=== PATIENT | male | born 1955 ===

== ENCOUNTER → 2022-07-08 | Outpatient (CLI) | payer OTHER | END | disposition home or self-care (01) | LOC: TOM 10:19 | PROVIDERS: ATTEND Internal Medicine Cardiovascular Disease | DX: I63.50 Cerebral infarction due to unspecified occlusion or stenosis of unspecified cerebral artery (principal) ==

== ENCOUNTER 2022-07-10 08:59 | Outpatient (CLI) | payer OTHER | END 2022-07-10 09:01 | disposition home or self-care (01) | LOC: LAB 08:59 | PROVIDERS: ATTEND Internal Medicine Cardiovascular Disease | DX: E11.9 Type 2 diabetes mellitus without complications (principal); I10 Essential (primary) hypertension; E03.9 Hypothyroidism, unspecified; E78.2 Mixed hyperlipidemia; N40.0 Benign prostatic hyperplasia without lower urinary tract symptoms; K92.0 Hematemesis; Z12.11 Encounter for screening for malignant neoplasm of colon ==

== ENCOUNTER 2022-09-24 10:57 | Outpatient (CLI) | payer OTHER | END 2022-09-24 11:03 | disposition home or self-care (01) | LOC: RAD 10:57 | DX: M75.81 Other shoulder lesions, right shoulder (principal) ==